=== PATIENT | male | born 1990 | race Caucasian/White ===

== ENCOUNTER 2025-06-01 09:55 | Emergency (ER) | payer SELFPAY ==
[~2025-06-01] VITALS: Ht 185.4 cm; Wt 110.0 kg
[2025-06-01 09:57] VITALS: BP 146/84; TEMP 36.9; O2SAT 99
[2025-06-01] MEDS ORDERED: OFLO5DRO4 RIGHT EAR (10:51)
[2025-06-01] MEDS ORDERED: AMOX1TAB16 PO (10:51)
[2025-06-01] MEDS ORDERED: TOPUD PO (10:51)
[2025-06-01 11:31] VITALS: PULSE 71; RESP 16; O2SAT 98
== END 2025-06-01 11:30 | disposition home or self-care (01) ==
LOC: ER 09:55
DX: H60.8X1 Other otitis externa, right ear (principal)
CPT/HCPCS: 99283